=== PATIENT | female | born 1970 | race Caucasian/White ===

== ENCOUNTER 2024-10-20 07:04 | Inpatient (IN) | payer OTHER ==
[2024-10-20 07:39] LABS: #Basophils 0.06 10x3/uL (0.0-0.2); %Basophils 0.8 % (0.0-1.0); %Eosinophils 1.2 % (0.0-10.0); %Lymphocytes 10.5 % (21.0-51.0); Hematocrit 28.6 % (36.0-47.0); Hemoglobin 8.5 g/dL (12.0-16.0); Mean Corpuscular HGB CONC 29.7 g/dL (32.0-36.0); Mean Corpuscular Hemoglobin 29.2 pg (27.0-31.0); Mean Corpuscular Volume 98.3 fL (78.0-98.0); Mean Platelet Volume 8.8 fL (7.4-10.4); Platelet Count 292 10x3/uL (130-400); RBC Distribution Width 16.3 % (11.5-14.5); Red Blood Cell (RBC) Count 2.91 mill/uL (4.20-5.40)
[2024-10-20 07:56] LABS: ALT (SGPT) 8 U/L (8-55); AST (SGOT) 14 U/L (5-34); Albumin 3.2 g/dL (3.5-5.0); Alkaline Phosphatase 140 U/L (40-110); Anion Gap 16 mmol/L (10-20); BUN (Urea Nitrogen) 34 mg/dL (9.8-20.1); Bilirubin, Total 0.5 mg/dL (0.2-1.2); Calc. Creatinine Clearance 0 mL/min (70-130); Calcium 9.8 mg/dL (7.8-10.44); Carbon Dioxide 30 mmol/L (22-29); Chloride 93 mmol/L (98-107); Estimated GFR 9; Globulin 5.6 g/dL (2.4-3.5); Glucose 130 mg/dL (70-105); Potassium 4.6 mmol/L (3.5-5.1); Protein, Total 8.8 g/dL (6.0-8.3); Sodium 134 mmol/L (136-145)
[2024-10-20 10:05] LABS: Troponin I 0.016 ng/mL (< 0.028)
[2024-10-20] MEDS ORDERED: Acetaminophen 325 MG TAB PO PRN (10:22)
[2024-10-20] MEDS ORDERED: Ondansetron PF 4 MG/2 ML Vial IVP PRN (10:22)
[2024-10-20] MEDS ORDERED: Acetaminophen 650 MG Suppository PR PRN (10:22)
[2024-10-20] MEDS ORDERED: Aspirin 325 MG TAB PO SCH (10:30)
[2024-10-20] MEDS ORDERED: Labetalol HCl 100 MG/20 ML VIAL ONE (10:48)
[2024-10-20 11:33] LABS: INR-International Normal Ratio 1.2; PTT 36.4 sec (22.9-36.1); Prothrombin Time 14.9 sec (12.0-14.7)
[2024-10-20 13:24] VITALS: BMI 31.8
[2024-10-20] MEDS ORDERED: Nitroglycerin 2% Ointment 1 INCH/1 GM Packet TOP SCH (14:00)
[2024-10-20] MEDS: traMADol HCl 50 MG TAB PO PRN (14:29)
[2024-10-20] MEDS ORDERED: Heparin 5,000 UNITS/ML VIAL SC SCH (15:00)
[2024-10-20] MEDS: Methocarbamol 500 MG TAB PO SCH (16:11)
[2024-10-20 16:15] LABS: Magnesium 2.2 mg/dL (1.6-2.6)
[2024-10-20 16:49] LABS: Influenza A by NAA Not Detected (NotDetected); Influenza B by NAA Not Detected (NotDetected); RSV by NAA Not Detected (NotDetected); SARS-CoV-2 NAA Rapid Test Not Detected (NotDetected)
[2024-10-20] MEDS: Lisinopril 20 MG TAB PO SCH (18:09)
[2024-10-20] MEDS: Labetalol HCl 100 MG/20 ML VIAL SLOW IVP PRN (20:14)
[2024-10-21 05:28] LABS: #Basophils 0.09 10x3/uL (0.0-0.2); %Basophils 1.1 % (0.0-1.0); %Eosinophils 1.8 % (0.0-10.0); %Lymphocytes 11.2 % (21.0-51.0); %Monocytes 6.5 % (0.0-10.0); %Neutrophils 78.9 % (42.0-75.0); Hematocrit 26.3 % (36.0-47.0); Hemoglobin 7.9 g/dL (12.0-16.0); Mean Corpuscular Hemoglobin 29.4 pg (27.0-31.0); Mean Corpuscular Volume 97.8 fL (78.0-98.0); Platelet Count 294 10x3/uL (130-400); RBC Distribution Width 16.4 % (11.5-14.5); Red Blood Cell (RBC) Count 2.69 mill/uL (4.20-5.40)
[2024-10-21 05:36] LABS: INR-International Normal Ratio 1.2; Prothrombin Time 15.2 sec (12.0-14.7)
[2024-10-21 05:52] LABS: ALT (SGPT) 8 U/L (8-55); AST (SGOT) 13 U/L (5-34); Alkaline Phosphatase 138 U/L (40-110); Anion Gap 20 mmol/L (10-20); BUN (Urea Nitrogen) 43 mg/dL (9.8-20.1); Bilirubin, Direct 0.3 mg/dL (0.1-0.3); Bilirubin, Total 0.5 mg/dL (0.2-1.2); Calc. Creatinine Clearance 13 mL/min (70-130); Calcium 9.5 mg/dL (7.8-10.44); Carbon Dioxide 24 mmol/L (22-29); Chloride 91 mmol/L (98-107); Estimated GFR 7; Glucose 113 mg/dL (70-105); Iron 62 ug/dL (50-170); Iron Binding Capacity, Total 215 mcg/dL (265-497); Magnesium 2.2 mg/dL (1.6-2.6); Protein, Total 8.1 g/dL (6.0-8.3); Sodium 130 mmol/L (136-145)
[2024-10-21 05:58] LABS: Immunoglob - A (Total IgA) 255 mg/dL (65-421); Immunoglob - G (Total IgG) 2388 mg/dL (552-1631); Immunoglob - M (Total IgM) 84 mg/dL (33-293)
[2024-10-21 06:00] LABS: Iron 62 ug/dL (50-170); Iron Binding Capacity, Total 211 mcg/dL (265-497)
[2024-10-21 06:51] LABS: HBsAg Index 0.19 S/CO (0-0.99); Hep A IgM AB NONREACTIVE (NonReactive); Hep A IgM S/CO 0.18 S/CO (0-0.79); Hep B Core IgM Index 0.07 S/CO (0-0.79); Hep B Surf Ag NONREACTIVE S/CO (NonReactive); Hep C IgG Ab Reflex HepC Qnt S/CO (NonReactive); Hep C Index 8.24 S/CO (0-0.79); Hepatitis B Core IgM Abs NONREACTIVE S/CO (NonReactive)
[2024-10-21] MEDS ORDERED: Albumin 25% 25 GM (100 mL) BOT IVPB PRN (07:05)
[2024-10-21 07:42] LABS: Ferritin 2411.21 ng/mL (10-291)
[2024-10-21 08:05] LABS: HBSAB Concentration Less than 8.00 mIU/mL; Hep B Core Total Ab NONREACTIVE (NonReactive); Hep B Core Total Index 0.15 S/CO (0-0.79); Hep B Surf AB NONREACTIVE (NonReactive)
[2024-10-21] MEDS: Lisinopril 20 MG TAB PO SCH (08:17)
[2024-10-21] MEDS: Carvedilol 3.125 MG TAB PO SCH ×2 (08:17→20:47)
[2024-10-21] MEDS ORDERED: Aspirin Chewable 81 MG TAB PO SCH (09:00)
[2024-10-21] MEDS: Pregabalin 25 MG CAP PO SCH (13:29)
[2024-10-21] MEDS: Venlafaxine 75 MG TAB PO SCH (13:30)
[2024-10-21] MEDS: Methocarbamol 500 MG TAB PO PRN (13:33)
[2024-10-21] MEDS: Pantoprazole 40 MG DR.TAB PO SCH (14:52)
[2024-10-21] MEDS: EPOETIN ALFA-EPBX (ESRD) 10,000 UNITS/ML VIAL SC SCH (14:53)
[2024-10-22 05:19] LABS: #Basophils 0.04 10x3/uL (0.0-0.2); %Basophils 0.5 % (0.0-1.0); %Eosinophils 1.3 % (0.0-10.0); %Lymphocytes 9.6 % (21.0-51.0); %Monocytes 6.8 % (0.0-10.0); %Neutrophils 81.1 % (42.0-75.0); Hematocrit 26.8 % (36.0-47.0); Mean Corpuscular HGB CONC 29.9 g/dL (32.0-36.0); Mean Corpuscular Volume 97.1 fL (78.0-98.0); Mean Platelet Volume 8.8 fL (7.4-10.4); Platelet Count 268 10x3/uL (130-400); RBC Distribution Width 16.8 % (11.5-14.5); Red Blood Cell (RBC) Count 2.76 mill/uL (4.20-5.40)
[2024-10-22 05:44] LABS: Anion Gap 12 mmol/L (10-20); BUN (Urea Nitrogen) 20 mg/dL (9.8-20.1); Calc. Creatinine Clearance 19 mL/min (70-130); Calcium 9.2 mg/dL (7.8-10.44); Carbon Dioxide 31 mmol/L (22-29); Chloride 95 mmol/L (98-107); Estimated GFR 12; Glucose 128 mg/dL (70-105); Magnesium 2.1 mg/dL (1.6-2.6); Potassium 3.9 mmol/L (3.5-5.1); Sodium 134 mmol/L (136-145)
[2024-10-22 05:48] LABS: Phosphorus 4.2 mg/dL (2.3-4.7)
[2024-10-22 06:10] LABS: INR-International Normal Ratio 1.3; Prothrombin Time 16.4 sec (12.0-14.7)
[2024-10-22] MEDS: Calcitriol 0.25 MCG CAP PO SCH (09:48)
[2024-10-22 11:44] LABS: ANA Symphony (Qualitative) Equivocal: See Note (Negative); ANA Symphony (Quantitative) 0.7 Ratio (< 0.7 Negative); EliA Vaculitis New Method **** NEW METHOD ****; Mitochondrial Ab 1.8 U/mL (<4 Negative); dsDNA IgG Antibody 1.9 IU/mL (<10 Negative)
[2024-10-22 14:59] VITALS: TEMP 98.2
[2024-10-22] MEDS ORDERED: Lidocaine 1% PF 5 ML VIAL ONE (16:06)
[2024-10-22] MEDS ORDERED: Sodium Bicarbonate 2.5 MEQ/5 ML SDV ONE (16:07)
[2024-10-22 17:50] LABS: RBC Count-Automated (BF) 984 /cu.mm; WBC/Nucleated-Auto (BF) 611 /cu.mm
[2024-10-22 18:35] VITALS: BP 175/72
[2024-10-22 18:37] LABS: BF Color Yellow; Body Fluid Source Ascites Body Fluid; Clarity Hazy (Clear); Tube # EDTA
[2024-10-22 19:10] LABS: BF Segmented Neutrophils 14 %; Cell Count Non Hematic 76 %; Lymphocytes 10 %
[2024-10-23 07:02] LABS: Alpha-1-Antitrypsin 240 mg/dL (101-187)
[2024-10-23 18:36] LABS: Smooth Muscle Total ABS 8 Units (0-19)
[2024-10-24 21:07] LABS: HCV RNA, log10 3.511 (.); Hep C PCR-Quant 3240 IU/mL (.)
== END 2024-10-22 18:42 | disposition home or self-care (01) | DRG 432 ==
LOC: SUATTDRO 07:04 → ERS 07:04 → OBS 11:40 → OBSVTOIN 10-21 12:56
PROVIDERS: ADMIT Family Medicine; ATTEND Family Medicine
PROC: 5A1D70Z Performance of Urinary Filtration, Intermittent, Less than 6 Hours Per Day (ICD-10-PCS; 2024-10-21)
PROC: 30233J1 Transfusion of Nonautologous Serum Albumin into Peripheral Vein, Percutaneous Approach (ICD-10-PCS; 2024-10-21)
PROC: 0W9G3ZZ Drainage of Peritoneal Cavity, Percutaneous Approach (ICD-10-PCS; principal; 2024-10-22)
DX: K74.60 Unspecified cirrhosis of liver (principal); N18.6 End stage renal disease; K51.90 Ulcerative colitis, unspecified, without complications; I12.0 Hypertensive chronic kidney disease with stage 5 chronic kidney disease or end stage renal disease; R18.8 Other ascites; N25.81 Secondary hyperparathyroidism of renal origin; E87.1 Hypo-osmolality and hyponatremia; I42.8 Other cardiomyopathies; E11.22 Type 2 diabetes mellitus with diabetic chronic kidney disease; R94.31 Abnormal electrocardiogram [ECG] [EKG]; H54.8 Legal blindness, as defined in USA; I16.0 Hypertensive urgency; E11.40 Type 2 diabetes mellitus with diabetic neuropathy, unspecified; E11.319 Type 2 diabetes mellitus with unspecified diabetic retinopathy without macular edema; E11.21 Type 2 diabetes mellitus with diabetic nephropathy; E78.5 Hyperlipidemia, unspecified; E66.9 Obesity, unspecified; F17.210 Nicotine dependence, cigarettes, uncomplicated; I05.1 Rheumatic mitral insufficiency; B18.2 Chronic viral hepatitis C; D63.1 Anemia in chronic kidney disease; Z99.2 Dependence on renal dialysis; Z88.8 Allergy status to other drugs, medicaments and biological substances; Z90.49 Acquired absence of other specified parts of digestive tract; Z90.710 Acquired absence of both cervix and uterus
CPT/HCPCS: 0241U; 36415; 49083; 71045; 76705; 80048; 80053; 80074; 80076; 82042; 82103; 82390; 82728; 83516; 83540; 83550; 83735; 83880; 83970; 84100; 84157; 84484; 85025; 85046; 85060; 85610; 85730; 86015; 86038; 86225; 86704; 86706; 86850; 86900; 86901; 87070; 87205; 87522; 87902; 89051; 90935; 93005; 93010; 93306; 93970; 96374; G0257; P9047; Q5105

== ENCOUNTER 2025-05-27 16:05 | Emergency (ER) | payer OTHER ==
[2025-05-27] MEDS ORDERED: Ketorolac Tromethamine 30 MG (1 mL) VIAL ONE (17:47)
[2025-05-27] MEDS ORDERED: Orphenadrine Citrate 100 MG ER.TAB ONE (17:47)
[2025-05-27] MEDS ORDERED: HYDROmorphone 0.5 MG/0.5 ML SYRINGE ONE (17:48)
[2025-05-27 21:11] LABS: #Basophils 0.06 10x3/uL (0.0-0.2); #Eosinophils 0.12 10x3/uL (0.0-0.7); #Monocytes 0.60 10x3/uL (0.11-0.59); #Neutrophils 6.34 10x3/uL (1.40-6.50); %Basophils 0.7 % (0.0-1.0); %Eosinophils 1.5 % (0.0-10.0); %Lymphocytes 12.1 % (21.0-51.0); %Monocytes 7.3 % (0.0-10.0); %Neutrophils 77.7 % (42.0-75.0); Hematocrit 32.7 % (36.0-47.0); Hemoglobin 10.0 g/dL (12.0-16.0); Mean Corpuscular Hemoglobin 30.0 pg (27.0-31.0); Mean Corpuscular Volume 98.2 fL (78.0-98.0); Platelet Count 167 10x3/uL (130-400); Red Blood Cell (RBC) Count 3.33 mill/uL (4.20-5.40); White Blood Cell (WBC) Count 8.17 10x3/uL (4.8-10.8)
[2025-05-27 21:43] LABS: ALT (SGPT) 19 U/L (Less than 34); AST (SGOT) 22 U/L (11-34); Albumin 3.9 g/dL (3.1-4.5); Alkaline Phosphatase 183 U/L (40-110); Anion Gap 24 mmol/L (10-20); BUN (Urea Nitrogen) 92 mg/dL (9.8-20.1); Bilirubin, Total 0.5 mg/dL (0.3-1.2); Calc. Creatinine Clearance 0 mL/min (70-130); Calcium 9.0 mg/dL (7.8-10.44); Carbon Dioxide 21 mmol/L (22-29); Chloride 97 mmol/L (98-107); Globulin 5.1 g/dL (2.4-3.5); Glucose 130 mg/dL (70-105); Lipase 100 U/L (8-78); Potassium 6.6 mmol/L (3.5-5.1); Sodium 135 mmol/L (136-145)
[2025-05-27] MEDS ORDERED: Dextrose 50% Abboject 50 ML SYRINGE ONE (22:19)
[2025-05-27] MEDS ORDERED: CALCIUM GLUC 1 GM/NS 50 ML IV Bag ONE (22:19)
[2025-05-27] MEDS ORDERED: Sodium Bicarb 50 MEQ/50 ML Abboject 8.4% SYRINGE ONE (22:19)
[2025-05-27 22:25] LABS: Actual Bicarbonate (HCO3a) 23.9 mEq/L (22-28); Analyzer IN Cardio ER; Base Excess (BEa) -1.0 mEq/L (-2.0 to +3.0); CO2 Tension 40.4 mmHg (35.0-45.0); Calcium, Ionized (arterial) 1.08 mmol/L (1.12-1.30); Hematocrit-ABG 33 % (36.0-47.0); Hemoglobin (Hb) 11.3 g/dL (12.0-16.0); O2 Tension (PaO2), arterial 77.8 mmHg (80.0-100.0); pH, Arterial 7.389 (7.35-7.45)
[2025-05-27 22:53] LABS: Potassium - ABG Lab 6.22 mmol/L (3.70-5.30)
[2025-05-27 22:54] LABS: ALV-art Gradient 21.430 mmHg (0-20); Puncture Site Right Radial artery
== END 2025-05-28 05:43 | disposition home or self-care (01) ==
LOC: ERS 16:05
DX: I12.0 Hypertensive chronic kidney disease with stage 5 chronic kidney disease or end stage renal disease (principal); E11.22 Type 2 diabetes mellitus with diabetic chronic kidney disease; N18.6 End stage renal disease; M54.50 Low back pain, unspecified; F17.210 Nicotine dependence, cigarettes, uncomplicated; Z99.2 Dependence on renal dialysis; Z79.899 Other long term (current) drug therapy
CPT/HCPCS: 36415; 36600; 72131; 80053; 82805; 83690; 83880; 85025; 93005; 96372; J0613; J1171; J1815; J1885; J7999

== ENCOUNTER 2025-05-29 20:19 | Emergency (ER) | payer OTHER ==
[2025-05-29 21:38] LABS: #Basophils 0.07 10x3/uL (0.0-0.2); #Eosinophils 0.12 10x3/uL (0.0-0.7); #Monocytes 0.81 10x3/uL (0.11-0.59); #Neutrophils 5.61 10x3/uL (1.40-6.50); %Basophils 0.9 % (0.0-1.0); %Eosinophils 1.6 % (0.0-10.0); %Lymphocytes 11.8 % (21.0-51.0); %Monocytes 10.7 % (0.0-10.0); %Neutrophils 74.3 % (42.0-75.0); Hematocrit 35.6 % (36.0-47.0); Hemoglobin 11.0 g/dL (12.0-16.0); Mean Corpuscular Hemoglobin 30.4 pg (27.0-31.0); Mean Corpuscular Volume 98.3 fL (78.0-98.0); Platelet Count 252 10x3/uL (130-400); Red Blood Cell (RBC) Count 3.62 mill/uL (4.20-5.40); White Blood Cell (WBC) Count 7.55 10x3/uL (4.8-10.8)
[2025-05-29 22:01] LABS: ALT (SGPT) 22 U/L (Less than 34); AST (SGOT) 37 U/L (11-34); Albumin 3.9 g/dL (3.1-4.5); Alkaline Phosphatase 193 U/L (40-110); Anion Gap 18 mmol/L (10-20); BUN (Urea Nitrogen) 42 mg/dL (9.8-20.1); Bilirubin, Total 0.4 mg/dL (0.3-1.2); Calc. Creatinine Clearance 0 mL/min (70-130); Calcium 9.5 mg/dL (7.8-10.44); Carbon Dioxide 26 mmol/L (22-29); Chloride 96 mmol/L (98-107); Globulin 4.8 g/dL (2.4-3.5); Glucose 161 mg/dL (70-105); Lipase 86 U/L (8-78); Magnesium 2.4 mg/dL (1.6-2.6); Potassium 3.7 mmol/L (3.5-5.1); Sodium 136 mmol/L (136-145)
[2025-05-29] MEDS ORDERED: HYDROmorphone 0.5 MG/0.5 ML SYRINGE ONE (22:29)
== END 2025-05-29 23:41 | disposition home or self-care (01) ==
LOC: ERS 20:19
DX: M47.816 Spondylosis without myelopathy or radiculopathy, lumbar region (principal); E11.22 Type 2 diabetes mellitus with diabetic chronic kidney disease; I12.0 Hypertensive chronic kidney disease with stage 5 chronic kidney disease or end stage renal disease; N18.6 End stage renal disease; Z99.2 Dependence on renal dialysis; F17.210 Nicotine dependence, cigarettes, uncomplicated
CPT/HCPCS: 36415; 71045; 80053; 83605; 83690; 83735; 83880; 84484; 85025; 87428; 93005; 96374; J1171; Q0162

== ENCOUNTER 2025-06-09 16:26 | Emergency (ER) | payer OTHER ==
[2025-06-09] MEDS ORDERED: Ketorolac Tromethamine 30 MG (1 mL) VIAL ONE (17:57)
== END 2025-06-09 18:21 | disposition home or self-care (01) ==
LOC: ERS 16:26
DX: M54.9 Dorsalgia, unspecified (principal); R10.9 Unspecified abdominal pain; R29.700 NIHSS score 0; I13.2 Hypertensive heart and chronic kidney disease with heart failure and with stage 5 chronic kidney disease, or end stage renal disease; E11.22 Type 2 diabetes mellitus with diabetic chronic kidney disease; N18.6 End stage renal disease; F17.210 Nicotine dependence, cigarettes, uncomplicated; Z99.2 Dependence on renal dialysis
CPT/HCPCS: 96372; 99283; J1885; J2270

== ENCOUNTER 2025-06-21 06:33 | Emergency (ER) | payer OTHER ==
[2025-06-21] MEDS ORDERED: Ketorolac Tromethamine 30 MG (1 mL) VIAL ONE (06:52)
== END 2025-06-21 07:11 | disposition home or self-care (01) ==
LOC: ERS 06:33
DX: M54.50 Low back pain, unspecified (principal); G89.29 Other chronic pain; M62.830 Muscle spasm of back; I12.0 Hypertensive chronic kidney disease with stage 5 chronic kidney disease or end stage renal disease; E11.22 Type 2 diabetes mellitus with diabetic chronic kidney disease; N18.6 End stage renal disease; F17.210 Nicotine dependence, cigarettes, uncomplicated
CPT/HCPCS: 96372; 99283; J1885